=== PATIENT | male | born 1985 | race African-American/Black ===

== ENCOUNTER 2017-06-25 07:36 | Emergency (ER) | payer SELFPAY ==
[~2017-06-25] VITALS: Ht 170.2 cm; Wt 99.8 kg
[2017-06-25 07:51] VITALS: BP 182/93
--- NOTE | 2017-06-25 07:57 | PHYS DOC ---
Past Medical History Past Medical History: Hypertension Past Surgical History: No Surgical History Alcohol Use: None Drug Use: Marijuana Adult General Chief Complaint Chief Complaint: ABDOMINAL PAIN HPI HPI Patient is a 31 year old male with no significant medical history who presents with intermittent episodes of abdominal pain generalized but he states usually worse on the left lower quadrant that began one week ago. Patient states he does not have the pain right now but usually when he has the pain it an 8 out of 10. Patient states may be he is constipated and needs to be given some medicines. He states he had a normal bowel movement yesterday. Patient denies any nausea vomiting fever or diarrhea. Review of Systems Review of Systems Constitutional: Denies fever or chills [] Eyes: Denies change in visual acuity, redness, or eye pain [] HENT: Denies nasal congestion or sore throat [] Respiratory: Denies cough or shortness of breath [] Cardiovascular: No additional information not addressed in HPI [] GI: Left lower quadrant abdominal pain as well as generalized abdominal pain, denies nausea, vomiting, bloody stools or diarrhea [] : Denies dysuria or hematuria [] Musculoskeletal: Denies back pain or joint pain [] Integument: Denies rash or skin lesions [] Neurologic: Denies headache, focal weakness or sensory changes [] Current Medications Current Medications Current Medications Medications (Trade) Dose Ordered Sig/Nelly Start Time Stop Time Status Last Admin Dose Admin Magnesium Citrate (Citroma) 296 ml 1X ONCE 06/25/17 09:00 06/25/17 09:01 Allergies Allergies Allergies Coded Allergies Type Severity Reaction Last Updated Verified No Known Drug Allergies 04/20/14 No Physical Exam Physical Exam Constitutional: Well developed, well nourished, no acute distress, non-toxic appearance. [] HENT: Normocephalic, atraumatic, bilateral external ears normal, oropharynx moist, no oral exudates, nose normal. [] Eyes: PERRLA, EOMI, conjunctiva normal, no discharge. [] Neck: Normal range of motion, no tenderness, supple, no stridor. [] Cardiovascular:Heart rate regular rhythm, no murmur [] Lungs & Thorax: Bilateral breath sounds clear to auscultation [] Abdomen: Rounded abdomen. Bowel sounds normal, soft, no tenderness, no masses, no pulsatile masses. [] Skin: Warm, dry, no erythema, no rash. [] Back: No tenderness, no CVA tenderness. [] Extremities: No tenderness, no cyanosis, no clubbing, ROM intact, no edema. [] Neurologic: Alert and oriented X 3, normal motor function, normal sensory function, no focal deficits noted. [] Psychologic: Affect normal, judgement normal, mood normal. [] Current Patient Data Vital Signs Vital Signs Date Time Temp Pulse Resp B/P (MAP) Pulse Ox O2 Delivery O2 Flow Rate FiO2 06/25/17 07:51 98.0 95 18 182/93 (122) 99 Room Air 98.0 Lab Values Laboratory Tests Test 06/25/17 07:50 Urine Collection Type Unknown Urine Color Yellow Urine Clarity Clear Urine pH 6.0 Urine Specific [place] 1.025 Urine Protein Negative mg/dL (NEG-TRACE) Urine Glucose (UA) Negative mg/dL (NEG) Urine Ketones (Stick) Negative mg/dL (NEG) Urine Blood Negative (NEG) Urine Nitrite Negative (NEG) Urine Bilirubin Negative (NEG) Urine Urobilinogen Dipstick 0.2 mg/dL (0.2 mg/dL) Urine Leukocyte Esterase Negative (NEG) Urine RBC Occ /HPF (0-2) Urine WBC Occ /HPF (0-4) Urine Squamous Epithelial Cells Occ /LPF Urine Bacteria Few /HPF (0-FEW) Urine Mucus Marked /LPF EKG EKG [] Radiology/Procedures Radiology/Procedures []PROCEDURE: ACUTE ABDOMEN SERIES Indication lower abdominal pain for the past several days. A single view of the chest as well as flat and upright films of the abdomen were obtained. The chest is compared to an examination over 10 years ago. No prior plain film imaging of the abdomen is available. The heart and pulmonary vessels are normal and the lungs are clear. There is no free air. The abdominal gas pattern is normal. No organomegaly or abnormal calculi are seen. The visualized bony structures appear grossly intact. IMPRESSION: No acute or significant finding seen on plain films of the chest and abdomen DICTATED and SIGNED BY: AZAM BENÍTEZ MD DATE: 06/25/17814 CC: YAZMIN FRAGA APRN; UNKNOWN PCP NAME ~ Course & Med Decision Making Course & Med Decision Making Pertinent Labs and Imaging studies reviewed. (See chart for details) This is a 31-year-old male patient presenting to the ED with complaints of intermittent episodes of generalized worse on the left lower quadrant abdominal pain. Patient has no pain right now. He states he thinks he could be constipated though he had a bowel movement yesterday. Acute abdominal series was negative for any acute findings. He was instructed to take MiraLAX if he is constipated or feels constipated. We talked about dietary measures including increasing water intake as well as fiber intake. His blood pressure was elevated at 174/91, he states his history of hypertension though his doctor has not put him on any medications. I recommended he considers losing weight, exercise and diet. I recommended he contacts his PCP to follow up for his blood pressure. Dragon Disclaimer Dragon Disclaimer This electronic medical record was generated, in whole or in part, using a voice recognition dictation system. Departure Departure Impression: Primary Impression: Abdominal pain Additional Impression: Hypertension Disposition: HOME, SELF-CARE Condition: STABLE Referrals: NO PCP (PCP) Follow-up with your doctor next week. Patient Instructions: Abdominal Pain, Constipation, Adult, Hypertension Additional Instructions: You were seen for abdominal pain. We did an acute abdominal series xrays which was negative for any acute findings. There is concern for constipation. We highly recommend MiraLAX, prunes, increase her water intake to 64 ounces, and increase your dietary fiber intake. Your blood pressure was 174/91, this is high. Contact your primary care doctor. Left them know your blood pressure is high. Consider exercising and losing weight. Consider dietary measures including avoidance of salt to/fatty foods. Problem Qualifiers Primary Impression: Abdominal pain Abdominal location: left lower quadrant Qualified Codes: R10.32 - Left lower quadrant pain Additional Impression: Hypertension Hypertension type: unspecified Qualified Codes: I10 - Essential (primary) hypertension YAZMIN FRAGA APRN Jun 25, 2017 07:57
[2017-06-25 08:05] LABS: BILIRUBIN,URINE NEGATIVE (NEG); GLUCOSE,URINE NEGATIVE (NEG); NITRITE,URINE NEGATIVE (NEG); PROTEIN,URINE NEGATIVE (NEG-TRACE); UROBILINOGEN,URINE 0.2 mg/dL (0.2 mg/dL)
[2017-06-25 08:14] LABS: SQUAMOUS EPITHELIAL CELL,UR OCC /LPF
[2017-06-25 08:15] LABS: BACTERIA,URINE FEW /HPF (0-FEW); RBC,URINE OCC /HPF (0-2); WBC,URINE OCC /HPF (0-4)
--- NOTE | 2017-06-25 08:19 | RAD ---
Indication lower abdominal pain for the past several days. A single view of the chest as well as flat and upright films of the abdomen were obtained. The chest is compared to an examination over 10 years ago. No prior plain film imaging of the abdomen is available. The heart and pulmonary vessels are normal and the lungs are clear. There is no free air. The abdominal gas pattern is normal. No organomegaly or abnormal calculi are seen. The visualized bony structures appear grossly intact. IMPRESSION: No acute or significant finding seen on plain films of the chest and abdomen
[2017-06-25] MEDS ORDERED: MAGNESIUM CITRATE 296 ML SOLUTION. PO ONE (09:00)
== END 2017-06-25 08:52 | disposition home or self-care (01) ==
LOC: ER 07:36
DX: R10.84 Generalized abdominal pain (principal); I10 Essential (primary) hypertension; F12.10 Cannabis abuse, uncomplicated
CPT/HCPCS: 74022; 81001; 99285

== ENCOUNTER 2017-10-03 08:49 | Emergency (ER) | payer SELFPAY | END 2017-10-03 09:35 | disposition home or self-care (01) | LOC: ER 08:49 | DX: Z20.2 Contact with and (suspected) exposure to infections with a predominantly sexual mode of transmission (principal); I10 Essential (primary) hypertension; F12.10 Cannabis abuse, uncomplicated | CPT/HCPCS: 87491; 87591; 99284 ==

== ENCOUNTER 2017-12-30 18:47 | Emergency (ER) | payer SELFPAY ==
[2017-12-30 19:44] LABS: ADD MAN DIFF? NO
[2017-12-30 19:46] LABS: BASO # 0.1 x10^3/uL (0.0-0.2); BASO % 1 % (0-3); EOS # 0.2 x10^3/uL (0.0-0.7); EOS % 2 % (0-3); HEMATOCRIT 41.8 % (39.0-53.0); LYMPH # 4.8 x10^3/uL (1.0-4.8); LYMPH % 45 % (24-48); MEAN CORPUSCULAR HEMOGLOBIN 28 pg (25-35); MEAN CORPUSCULAR HGB CONC 33 g/dL (31-37); MEAN CORPUSCULAR VOLUME 83 fL (79-100); MONO % 9 % (0-9); NEUT # 4.8 x10^3uL (1.8-7.7); NEUT % 44 % (31-73); PLATELET COUNT 272 x10^3/uL (140-400); RED BLOOD COUNT 5.06 x10^6/uL (4.30-5.70); WHITE BLOOD COUNT 10.9 x10^3/uL (4.0-11.0)
[2017-12-30 19:50] LABS: BILIRUBIN,URINE NEGATIVE (NEG); CLARITY,URINE CLEAR; COLOR,URINE YELLOW; GLUCOSE,URINE NEGATIVE (NEG); NITRITE,URINE NEGATIVE (NEG); PROTEIN,URINE NEGATIVE (NEG-TRACE); UROBILINOGEN,URINE 0.2 mg/dL (0.2 mg/dL)
[2017-12-30] MEDS: IV NORMAL SALINE 1000ML BAG 1,000 ML IV (19:54)
[2017-12-30] MEDS: ONDANSETRON PF 4 MG/2 ML VIAL. IV (19:57)
[2017-12-30 19:59] LABS: ANION GAP 11 (6-14); BLOOD UREA NITROGEN 16 mg/dL (8-26); BUN/CREATININE RATIO 12 (6-20); CALCIUM 8.5 mg/dL (8.5-10.1); CARBON DIOXIDE 30 mmol/L (21-32); CHLORIDE 103 mmol/L (98-107); CREATININE 1.3 mg/dL (0.7-1.3); GFR 77.9; GLUCOSE 106 mg/dL (70-99); POTASSIUM 3.2 mmol/L (3.5-5.1); SODIUM 144 mmol/L (136-145)
[2017-12-30] MEDS: fentaNYL PF VIAL 100 MCG/2 ML VIAL IV (20:00)
[2017-12-30] MEDS: KETOROLAC 30 MG/ML INJ. IV (20:01)
[2017-12-30 20:04] LABS: ALBUMIN 4.1 g/dL (3.4-5.0); ALBUMIN/GLOBULIN RATIO 1.1 (1.0-1.7); ALK PHOS 58 U/L (46-116); ALT (SGPT) 45 U/L (16-63); AST (SGOT) 29 U/L (15-37); TOTAL BILIRUBIN 0.3 mg/dL (0.2-1.0)
[2017-12-30 20:08] LABS: RBC,URINE >40 /HPF (0-2)
[2017-12-30 20:09] LABS: BACTERIA,URINE 0 /HPF (0-FEW)
== END 2017-12-30 21:28 | disposition home or self-care (01) ==
LOC: ER 18:47
DX: N20.1 Calculus of ureter (principal); I10 Essential (primary) hypertension; F12.10 Cannabis abuse, uncomplicated; Z88.6 Allergy status to analgesic agent
CPT/HCPCS: 36415; 74176; 80053; 81001; 85025; 96361; 96374; 96375; 99285-25; J1885; J2405; J3010; J7030

== ENCOUNTER 2018-10-03 00:39 | Emergency (ER) | payer SELFPAY ==
[~2018-10-03] VITALS: Ht 167.6 cm; Wt 90.7 kg
[~2018-10-03 00:39] MED LIST: AZIT500T PO; CEFI400C PO; HYDR-3164 PO; METR500T PO; ONDA4TAB10 PO; TAMS0.4C97 PO
--- NOTE | 2018-10-03 01:15 | PHYS DOC ---
Past Medical History Past Medical History: No Pertinent History, Hypertension Past Surgical History: Other Additional Past Surgical Histo: ORAL SX Alcohol Use: Occasionally Drug Use: Marijuana Adult General Chief Complaint Chief Complaint: CHEST PAIN HPI HPI Patient is a 32 year old -[place] male presents with epigastric pain radiating to chest worse with sleeping. No nausea vomiting or sweats. Denies Bloody stools or dark tarry stools No dyspnea, palpitations. Denies leg pain or swelling. No medications or therapy sticking prior to ED arrival.. No other acute symptoms or complaints [] Review of Systems Review of Systems Review symptoms as per history of present illness. All other review symptoms are negative. All other systems were reviewed and found to be within normal limits, except as documented in this note. Current Medications Current Medications Current Medications Medications (Trade) Dose Ordered Sig/Nelly Start Time Stop Time Status Last Admin Dose Admin Multi-Ingredient Mouthwash/Gargle (Gi Cocktail) 20 ml 1X ONCE 10/03/18 02:00 10/03/18 02:01 DC 10/03/18 01:36 20 ML Allergies Allergies Allergies Coded Allergies Type Severity Reaction Last Updated Verified lisinopril Allergy Intermediate RASH, SWELLING 12/30/17 Yes Physical Exam Physical Exam Constitutional: Well developed, well nourished, no acute distress, non-toxic appearance. [] HENT: Normocephalic, atraumatic, bilateral external ears normal, oropharynx moist, no oral exudates, nose normal. [] Eyes: PERRLA, EOMI, conjunctiva normal, no discharge. [] Neck: Normal range of motion, no tenderness, supple, no stridor. [] Cardiovascular:Heart rate regular rhythm, no murmur [] Lungs & Thorax: Bilateral breath sounds clear to auscultation [] Abdomen: Bowel sounds normal, soft, no tenderness, no johanna. [] Skin: Warm, dry, no erythema, no rash. [] Back: No tenderness, no CVA tenderness. [] Extremities: No tenderness, no cyanosis, no clubbing, ROM intact, no edema. [] Neurologic: Alert and oriented X 3, normal motor function, normal sensory function, no focal deficits noted. [] Psychologic: Affect normal, judgement normal, mood normal. [] Current Patient Data Vital Signs Vital Signs Date Time Temp Pulse Resp B/P (MAP) Pulse Ox O2 Delivery O2 Flow Rate FiO2 10/03/18 01:43 82 20 127/65 (85) 99 Room Air 10/03/18 00:41 98.9 98.9 EKG EKG [EKG: Reviewed] Radiology/Procedures Radiology/Procedures [] Course & Med Decision Making Course & Med Decision Making Pertinent Labs and Imaging studies reviewed. (See chart for details) [Symptoms essentially resolved prior to ED arrival. Speck regarding esophageal spasm. Recommend supportive care with PCP follow-up. Return precautions reviewed.] Dragon Disclaimer Dragon Disclaimer This electronic medical record was generated, in whole or in part, using a voice recognition dictation system. Departure Departure Impression: Primary Impression: GERD with esophagitis Disposition: HOME, SELF-CARE Condition: STABLE Referrals: NO PCP (PCP) Additional Instructions: Follow-up with your workman's compensation physician for reevaluation of your ankle. You are cleared for light duty until seen by your workman's comp physician. If worsening return to the emergency department. Scripts Famotidine (PEPCID) 20 Mg Tablet 20 MG PO BID, #30 TAB Prov: SUNIL HASSAN DO 10/03/18 JUANCHO MORELAND APRN Oct 03, 2018 01:15 SUNIL HASSAN DO Oct 03, 2018 04:47
[2018-10-03] MEDS: LIDO:MAALOX 1:1 20 ML SINGLE DOSE. SWSW ONE (01:36)
[2018-10-03 01:43] VITALS: BP 127/65
[2018-10-03] MEDS ORDERED: FAMO-63 PO (01:47)
--- NOTE | 2018-10-03 06:44 | EKG ---
[facility] [address] [place] [address] Test Date: 2018-10-03 Test Time: 00:42:36 Pat Name: ANA AQUINO Department: Room: Gender: M Computer Aided Drafter: : 1985 Requested By: SUNIL HASSAN Order Number: [id number] Reading MD: Measurements Intervals [place] Rate: 90 P: 29 AK: 144 QRS: 77 QRSD: 90 T: -9 QT: 344 QTc: 424 Interpretive Statements SINUS RHYTHM T ABNORMALITY IN INFERIOR LEADS NON SPECIFIC ST-T ABNORMALITY (ELEVATION) ABNORMAL ECG No previous ECG available for comparison
== END 2018-10-03 02:05 | disposition home or self-care (01) ==
LOC: ER 00:39
DX: K21.0 Gastro-esophageal reflux disease with esophagitis (principal); I10 Essential (primary) hypertension; Z88.8 Allergy status to other drugs, medicaments and biological substances
CPT/HCPCS: 93005; 99283

== ENCOUNTER 2019-07-13 13:41 | Emergency (ER) | payer SELFPAY ==
[~2019-07-13] VITALS: Ht 167.6 cm; Wt 104.3 kg
[~2019-07-13 13:41] MED LIST changes: +FAMO-63 PO
[2019-07-13 14:40] VITALS: BP 143/88
[2019-07-13] MEDS ORDERED: NAPROXEN 500 MG TABLET PO STA (14:49)
[2019-07-13] MEDS ORDERED: HYDROcodone/APAP 5/325MG 1 TAB TABLET PO ONE (15:00)
--- NOTE | 2019-07-13 15:44 | RAD ---
ANKLE RIGHT 3V History: Posterior right ankle pain. Technique: 3 views right ankle. Comparison: None. Findings: Normal alignment. Symmetric ankle mortise. No fracture. Soft tissues unremarkable. Impression: 1. No acute osseous abnormality. Electronically signed by: Dat Briceño DO (07/13/2019 3:41 PM) [facility]
[2019-07-13] MEDS ORDERED: MELO7.5T29 PO (16:42)
[2019-07-13] MEDS ORDERED: HYDR-3164 PO (16:42)
--- NOTE | 2019-07-13 16:43 | PHYS DOC ---
Past Medical History Past Medical History: No Pertinent History Past Surgical History: No Surgical History Additional Past Surgical Histo: ORAL SX Alcohol Use: None Drug Use: Marijuana Adult General Chief Complaint Chief Complaint: LOWEREXTREMITY INJURY HPI HPI Patient is a 33 year old male with no significant medical history who presents to the ED today concerned he could've tore up his Achilles tendon on the left leg. Patient states he was stepping out of a care and stepped on a ledge and fell. Patient denies any loss of consciousness. States the pain is worse on weight bearing. States immobilization has been relieving some of the pain. Review of Systems Review of Systems Constitutional: Denies fever or chills [] Musculoskeletal: Reports pain behind the left ankle Integument: Denies rash or skin lesions [] Neurologic: Denies headache, focal weakness or sensory changes [] All other systems were reviewed and found to be within normal limits, except as documented in this note. Current Medications Current Medications Current Medications Medications (Trade) Dose Ordered Sig/Nelly Start Time Stop Time Status Last Admin Dose Admin Acetaminophen/ Hydrocodone Bitart (Lortab 5/325) 2 tab 1X ONCE 07/13/19 15:00 07/13/19 15:01 DC 07/13/19 15:05 2 TAB Naproxen (Naprosyn) 500 mg 1X STAT 07/13/19 14:49 07/13/19 14:52 DC 07/13/19 15:06 500 MG Allergies Allergies Allergies Coded Allergies Type Severity Reaction Last Updated Verified lisinopril Allergy Intermediate RASH, SWELLING 12/30/17 Yes Physical Exam Physical Exam Constitutional: Well developed, well nourished, no acute distress, non-toxic appearance. [] Skin: Warm, dry, no erythema, no rash. [] Back: No tenderness, no CVA tenderness. [] Extremities: Left lower extremity with no obvious deformity. Tenderness on palpation of the left Achilles tendon region, full range of motion to the left foot including flexion and extension of the foot. Negative Rosales sign. +2 left pedal pulse, sensation intact to the left lower extremity. Neurologic: Alert and oriented X 3, normal motor function, normal sensory function, no focal deficits noted. [] Psychologic: Affect normal, judgement normal, mood normal. [] Current Patient Data Vital Signs Vital Signs Date Time Temp Pulse Resp B/P (MAP) Pulse Ox O2 Delivery O2 Flow Rate FiO2 10/28/19 14:40 98.1 86 17 143/88 (106) 98 Room Air 98.1 EKG EKG [] Radiology/Procedures Radiology/Procedures []PROCEDURE: ANKLE RIGHT 3V ANKLE RIGHT 3V History: Posterior right ankle pain. Technique: 3 views right ankle. Comparison: None. Findings: Normal alignment. Symmetric ankle mortise. No fracture. Soft tissues unremarkable. Impression: 1. No acute osseous abnormality. Electronically signed by: Dat Briceño DO (07/13/2019 3:41 PM) [facility] DICTATED and SIGNED BY: DAT BRICEÑO DO DATE: 07/13/19 154 Course & Med Decision Making Course & Med Decision Making Pertinent Labs and Imaging studies reviewed. (See chart for details) This is a 33-year-old male patient presenting to the ED today concerned he could've toe up his Achilles tendon on the left side. Physical exam is negative for Achilles tendon tear. Left ankle x-rays interpreted by radiologist are negative. Patient was placed in a posterior leg splint by the ED RN, neurovascular exam done by me is normal. Provided orthopedic doctor to follow up with the course of this week. Provided crutches. Ice elevation encouraged. Dragon Disclaimer Dragon Disclaimer This electronic medical record was generated, in whole or in part, using a voice recognition dictation system. Departure Departure Impression: Primary Impression: Left ankle pain Disposition: 01 HOME, SELF-CARE Condition: STABLE Referrals: NO PCP (PCP) CAS CHACKO MD follow up in the next 7 days Patient Instructions: Ankle Pain Additional Instructions: You were evaluated for pain to the back of the ankle, your left ankle xray is negative for any acute findings. Please follow up with the provided Orthopedic doctor in the course of this week Scripts Meloxicam (MELOXICAM) 7.5 Mg Tablet 1 TAB PO DAILY for 30 Days, #30 TAB 0 Refills Prov: YAZMIN FRAGA APRN 07/13/19 Hydrocodone/Apap 5-325 (NORCO 5-325 TABLET) 1 Each Tablet 1 TAB PO Q6HRS, #12 TAB Prov: YAZMIN FRAGA APRN 07/13/19 Problem Qualifiers Primary Impression: Left ankle pain Chronicity: acute Qualified Codes: M25.572 - Pain in left ankle and joints of left foot YAZMIN FRAGA APRN Jul 13, 2019 16:42
== END 2019-07-13 16:50 | disposition home or self-care (01) ==
LOC: ER 13:41
DX: M25.572 Pain in left ankle and joints of left foot (principal); Z88.8 Allergy status to other drugs, medicaments and biological substances; W01.0XXA Fall on same level from slipping, tripping and stumbling without subsequent striking against object, initial encounter; Y93.89 Activity, other specified; Y92.89 Other specified places as the place of occurrence of the external cause; Y99.8 Other external cause status
CPT/HCPCS: 29515; 73610; 99284

== ENCOUNTER 2020-11-29 00:55 | Emergency (ER) | payer SELFPAY ==
[~2020-11-29] VITALS: Ht 167.6 cm; Wt 105.0 kg
[~2020-11-29 00:55] MED LIST changes: +MELO7.5T29 PO
[2020-11-29 01:46] LABS: BILIRUBIN,URINE NEGATIVE (NEG); CLARITY,URINE CLEAR; COLOR,URINE YELLOW; NITRITE,URINE NEGATIVE (NEG); PH,URINE 5.5 (<5.0-8.0); PROTEIN,URINE NEGATIVE (NEG-TRACE); UROBILINOGEN,URINE 0.2 mg/dL (0.2 mg/dL)
[2020-11-29 01:51] LABS: BACTERIA,URINE 0 /HPF (0-FEW); RBC,URINE 0 /HPF (0-2); WBC,URINE OCC /HPF (0-4)
--- NOTE | 2020-11-29 01:52 | PHYS DOC ---
Past Medical History Past Medical History: Kidney Stone Past Surgical History: Other Additional Past Surgical Histo: ORAL SX Smoking Status: Never Smoker Alcohol Use: Occasionally Drug Use: Marijuana General Adult EDM: Chief Complaint: FLANK PAIN HPI: HPI: Patient is a 34 year old -[place] male with prior history of left-sided kidney stones presents for right-sided flank pain. Patient reports that for the past 3 days he has a right flank discomfort. This sensation can travel to either side of his shoulder, and increases his abdominal distention. Patient reports that the increased abdominal pressure gave him urges to defecate and urinate without producing any feces or urine. Patient states that changing body positions can help with the discomfort. In addition he reports that dairy products, red wine, as well as greasy foods sometimes could increase his discomfort. 2 years ago patient had a left side kidney stone which was very painful for him at the time. Therefore this time patient came into the ER trying to act proactively. Patient denies nausea and vomiting, chest pain, shortness of air, abdominal pain, dysuria, constipation or diarrhea, increased urination, and numbness and tingling in the hands and feet. Patient is the main historian. Review of Systems: Review of Systems: Review of systems: Constitutional symptoms- No fever, no chills. Eyes- No Discharge, No Visual Loss Respiratory symptoms- No shortness of breath, No wheezing, No Dyspnea on Exertion Cardiovascular Systems; No chest pain, No Palpitations, No syncope Gastrointestinal symptoms: Positive abdominal pain, no nausea, no vomiting or diarrhea. Genitourinary symptoms: Right-sided flank comfort. No dysuria. Musculoskeletal symptoms: No back pain No extremity pain. NEUROLOGICAL Symptoms: No headache, no generalized weakness; No focal Weakness Heart Score: C/O Chest Pain: No Risk Factors: Risk Factors: DM, Current or recent (<one month) smoker, HTN, HLP, family history of CAD, obesity. Risk Scores: Score 0 - 3: 2.5% MACE over next 6 weeks - Discharge Home Score 4 - 6: 20.3% MACE over next 6 weeks - Admit for Clinical Observation Score 7 - 10: 72.7% MACE over next 6 weeks - Early Invasive Strategies Allergies: Allergies: Allergies Coded Allergies Type Severity Reaction Last Updated Verified lisinopril Allergy Intermediate RASH, SWELLING 12/30/17 Yes Physical Exam: PE: General: alert, no acute distress. Skin: warm, dry and intact. Head:: Normocephalic, atraumatic. Neck: Trachea midline. Eyes: EOMI, Normal conjunctiva, No drainage CARDIOVASCULAR: Regular rate and rhythm RESPIRATORY: No respiratory distress Back: Full range of motion. MUSCULOSKELETAL: Full range of motion of bilateral upper and lower extremities. GASTROINTESTINAL: Abdomen mildly distended with mild tenderness in the right upper quadrant, without rebound or guarding. Genitourinary: Negative Leonel's punch test NEUROLOGICAL: Alert and noted to person, place and time. No neurological deficits observed Psychiatric: Cooperative. Normal judgment Current Patient Data: Vital Signs: Vital Signs Date Time Temp Pulse Resp B/P (MAP) Pulse Ox O2 Delivery O2 Flow Rate FiO2 11/29/20 01:09 98.8 82 156/79 (104) 100 Room Air 98.8 EKG: EKG: [] Radiology/Procedures: Radiology/Procedures: [] Impression: Patient was evaluated for chief complaint. Work-up consisted of laboratory analysis radiologic imaging. Results reviewed and discussed with patient. CT imaging shows kidney stone in left kidney. No acute process abdomen pelvis identified. Patient's labs within normal limits. Patient will be discharged home with instructions to follow-up with primary care physician. Course & Med Decision Making: Course & Med Decision Making Pertinent Labs and Imaging studies reviewed. (See chart for details) [] Ainsley Disclaimer: Ainsley Disclaimer: This electronic medical record was generated, in whole or in part, using a voice recognition dictation system. Departure Departure Impression: Primary Impression: Flank pain Additional Impression: Abdominal pain Disposition: 01 DC HOME SELF CARE/HOMELESS Condition: STABLE Referrals: NO PCP (PCP) Patient Instructions: Abdominal Pain, Flank Pain PIPPA ZHONG DO Nov 29, 2020 01:52
[2020-11-29 02:32] LABS: BASO # 0.1 x10^3/uL (0.0-0.2); BASO % 1 % (0-3); EOS # 0.1 x10^3/uL (0.0-0.7); EOS % 2 % (0-3); HEMATOCRIT 41.3 % (39.0-53.0); HEMOGLOBIN 14.1 g/dL (13.0-17.5); LYMPH # 2.4 x10^3/uL (1.0-4.8); LYMPH % 34 % (24-48); MEAN CORPUSCULAR HEMOGLOBIN 28 pg (25-35); MEAN CORPUSCULAR HGB CONC 34 g/dL (31-37); MEAN CORPUSCULAR VOLUME 83 fL (79-100); MONO # 0.5 x10^3/uL (0.0-1.1); MONO % 7 % (0-9); NEUT # 4.1 x10^3/uL (1.8-7.7); NEUT % 56 % (31-73); PLATELET COUNT 215 x10^3/uL (140-400); RED BLOOD COUNT 4.98 x10^6/uL (4.30-5.70); RED CELL DISTRIBUTION WIDTH 14.5 % (11.5-14.5); WHITE BLOOD COUNT 7.2 x10^3/uL (4.0-11.0)
[2020-11-29 02:35] VITALS: BP 159/88
[2020-11-29 02:43] LABS: CALCIUM 8.3 mg/dL (8.5-10.1); CREATININE 1.3 mg/dL (0.7-1.3); GFR 76.9; POTASSIUM 3.9 mmol/L (3.5-5.1)
[2020-11-29 02:48] LABS: ALBUMIN 3.9 g/dL (3.4-5.0); TOTAL BILIRUBIN 0.4 mg/dL (0.2-1.0); TOTAL PROTEIN 7.7 g/dL (6.4-8.2)
--- NOTE | 2020-11-29 02:51 | RAD ---
CT abdomen and pelvis without contrast: Reason for examination: Flank pain. Comparison is made to previous study dated 01/01/2018. Helical images were obtained through the abdomen pelvis with no intravenous or oral contrast administ ered. Reconstruction was performed in sagittal and coronal planes. Exposure: One or more of the following individualized dose reduction techniques were utilized for thi s examination: 1. Automated exposure control 2. Adjustment of the mA and/or kV according to patient size 3. Use of iterative reconstruction technique. The lung bases are clear. The heart size is normal with no pericardial effusion. No abnormality seen at the liver, spleen, adrenal glands, gallbladder or pancreas. The abdominal aort a and inferior vena cava show no gross abnormalities. No abnormality seen at the appendix. There is n o evidence of diverticulosis, diverticulitis or colitis. The small intestinal tract shows no abnormal dilatation, wall thickening or obstruction. No abnormality seen at the stomach or duodenum. The kidn eys show a small nonobstructing calculus at the lower pole of the left kidney and upper pole the righ t kidney. There is no hydronephrosis or evidence of obstructive uropathy. The bladder is not distende d. No abnormality seen at the prostate gland or seminal vesicles. No free fluid or free air seen in t he abdomen or pelvis. IMPRESSION: Small nonobstructing calculi in the lower pole of the left kidney and upper pole the right kidney. No hydronephrosis or obstructive uropathy evident. No other acute abnormalities in the abdomen or pelvis. Electronically signed by: Kimberley Powell MD (11/29/2020 2:49 AM) [facility]
== END 2020-11-29 03:28 | disposition home or self-care (01) ==
LOC: ER 00:55
DX: R10.11 Right upper quadrant pain (principal); Z87.442 Personal history of urinary calculi; Z88.8 Allergy status to other drugs, medicaments and biological substances
CPT/HCPCS: 36415; 74176; 80053; 81001; 85025; 99284-25